=== PATIENT | female | born 1990 | race Two or more races ===

== ENCOUNTER 2017-05-22 11:36 | Emergency (ER) | payer SELFPAY ==
[~2017-05-22] VITALS: Ht 139.7 cm; Wt 72.6 kg
[2017-05-22 11:51] VITALS: BP 132/81
== END 2017-05-22 12:07 | disposition home or self-care (01) ==
LOC: ED 12:01
DX: J03.90 Acute tonsillitis, unspecified (principal)
CPT/HCPCS: 99283

== ENCOUNTER 2018-09-13 09:08 | Emergency (ER) | payer MEDICAID, OTHER ==
[~2018-09-13] VITALS: Ht 142.2 cm; Wt 67.9 kg
[2018-09-13 09:09] VITALS: BP 133/73
== END 2018-09-13 09:49 | disposition home or self-care (01) ==
LOC: ED 09:35
DX: B02.33 Zoster keratitis (principal)
CPT/HCPCS: 99283

== ENCOUNTER 2019-03-04 17:03 | Emergency (ER) | payer MEDICAID ==
[~2019-03-04] VITALS: Ht 142.2 cm; Wt 71.0 kg
[2019-03-04 17:04] VITALS: BP 131/91
== END 2019-03-04 18:17 | disposition home or self-care (01) ==
LOC: ED 18:11
DX: H66.012 Acute suppurative otitis media with spontaneous rupture of ear drum, left ear (principal)
CPT/HCPCS: 99283